=== PATIENT | female | born 1985 | race Hispanic/Latino ===

== ENCOUNTER 2019-06-18 06:28 | Day surgery (SDC) | payer OTHER ==
[2019-06-12 12:42] LABS: Absolute Lymphocytes (CBC) 2.5 K/uL (0.7-4.9); Basophils % 0.6 % (0-1.3); Hematocrit 27.3 % (36.0-45.0); Lymphocytes % 43.7 % (15.3-44.8); MPV 9.2 fL (7.6-11.3)
[2019-06-12 13:09] LABS: Urine Appearance CLEAR; Urine Bilirubin NEGATIVE (NEG); Urine Blood 1+ (NEG); Urine Color YELLOW; Urine Glucose NEGATIVE (NEG); Urine Protein NEGATIVE (NEG); Urine Urobilinogen 0.2 mg/dL (0.2-1.0)
[2019-06-12 13:11] LABS: Urine Microscopic Reflex ORDER UMIC
[2019-06-12 13:52] LABS: Urine Bacteria 20-50 /HPF (<20); Urine Culture Reflex Order REFLEXED; Urine Mucus 2+ /HPF (NONE SEEN)
[2019-06-18] MEDS ORDERED: Ringers Lactate 1,000 ML IV ONE ×2 (06:45→10:24)
[2019-06-18] MEDS ORDERED: SCOPOLAMINE HYDROBROMIDE PATCH TD ONE (06:45)
[2019-06-18] MEDS ORDERED: CEFAZOLIN/SWI 2gm 2 GM/20 ML SYR ONE (06:45)
[2019-06-18 06:48] LABS: Specific Gravity <= 1.005 (1.005-1.030)
[2019-06-18] MEDS ORDERED: PROPOFOL 200 MG/20 ML VIAL IV ONE (07:14)
[2019-06-18] MEDS ORDERED: FENTANYL CITR 250 MCG/5 ML ONE (07:15)
[2019-06-18] MEDS ORDERED: ROCURONIUM 50 MG/5 ML VIAL IV ONE ×2 (07:15→08:51)
[2019-06-18] MEDS ORDERED: ONDANSETRON 4 MG/2 ML VIAL ONE (07:15)
[2019-06-18] MEDS ORDERED: MIDAZOLAM HCL 2 MG/2 ML INJ ONE (07:15)
[2019-06-18 07:20] VITALS: O2SAT 100
[2019-06-18] MEDS ORDERED: BUPIVACAINE 0.25% PF 10 ML VIAL ONE (08:08)
[2019-06-18] MEDS ORDERED: LIDOCAINE 1% 20 ML MDV ONE (08:08)
[2019-06-18] MEDS ORDERED: dexAMETHasone 4 MG/ML VIAL ONE (08:20)
[2019-06-18] MEDS ORDERED: EPHEDRINE SULF 50 MG/ML VIAL ONE (08:23)
[2019-06-18] MEDS ORDERED: KETOROLAC 30 MG/ML INJ ONE (10:11)
[2019-06-18] MEDS: Ringers Lactate 1,000 ML IV ONE ×2 (10:22→10:34)
[2019-06-18] MEDS ORDERED: ATROPINE SULF 1 MG/10 ML SYR IV ONE (10:30)
[2019-06-18 11:31] VITALS: TEMP 98.8
[2019-06-18] MEDS ORDERED: HYDROCODONE/APAP 5/325 MG TAB ONE (11:38)
[2019-06-18 12:35] VITALS: BP 108/65
--- NOTE | 2019-06-18 22:29 | OP ---
Date of Procedure: 06/18/2019 Surgeon: Dilcia Ron MD Preoperative Diagnoses: Menorrhagia, fibroids, iron-deficiency anemia. Postoperative Diagnosis: Menorrhagia, fibroids, iron-deficiency anemia, and endometriosis. Procedures Performed: Total laparoscopic hysterectomy, bilateral salpingectomy, endometriosis excisi on, and right ovarian pexy. Indication: The patient is a 33-year-old female, 2, para 2, done with childbearing. She has had history of cervical incompetence during and status post cerclage. No other gynecologi aletha procedures. She was referred for severe iron deficiency anemia and failed medical management by Dr. Ventura. Oral contraceptives, Depo did fail to take care of her bleeding, worsening over the p ast 4 years since the last childbirth. Uterus size about 10 to 12 weeks. Discussed about the option s of myomectomy, ablation of fibroid using uterine artery embolization. After discussing the benefit s, risks, and alternatives of the procedures and the risks of recurrent anemia, the patient wanted to proceed with a hysterectomy. She was done with childbearing and so, there were no further concerns. The patient's was interviewed as well and they were both in agreement about their decision, s o she was consented for a total laparoscopic hysterectomy, bilateral salpingectomy. Procedure In Detail: After she was brought back to the OR, 2 g of Ancef were given. The patient was placed on operating table in a supine fashion. General anesthesia was given, placed in dorsal litho halle position, arms were tucked by the side, SCDs were started after antibiotic was given. Pelvic exam was performed, uterus anteflexed, and large posterior fibroid noted. No adnexal masses were noted. No nodularity was noted. Abdomen, vulva, vagina, and perineum were prepped and draped in a sterile fashion. Alexander was placed to drain the bladder. Large VCare fixed into place. This area was draped. A 1 cm infraumbilical incision made with the scalpel using the open laparoscopy technique. Fascia wa s incised, tagged with 0 Vicryl sutures, peritoneum entered, S-retractors were placed, and then, Adelso on introduced and abdomen insufflated. The gallbladder appeared to be completely unremarkable. Some adhesions of the ascending colon in the right lower quadrant above the level of the pelvic brim. No other problems were seen. Endometriosis was noted in the left lateral wall, the posterior aspect of the uterus, and the uterosacral ligament on the left. Ovaries were normal. Tubes were normal. A large posterior fibroid was seen, just had to make a plan to go posterior to this since it is almos t lower uterine and cervical in origin. A 5 mm left lower quadrant, 10 mm suprapubic ports were placed. The procedure was started. The left tube was taken down from the fimbriated end all the way to the medial aspect intact. Utero-ovarian ligament and round ligament were all taken down. Broad ligament was skeletonized. The anterior diomedes toneum of the broad ligament was opened up such that the bladder flap was raised posteriorly. Dissec tion was performed to separate the ureter from the uterine artery, making sure that the level of the endometriosis was excised and stayed on the specimen side. There was some endometriosis in the infer omedial aspect of the ureter and the mid pelvis that had to be left alone because this could not be i ncluded with the serosa and this was taken later. Then once the vessels were skeletonized on opposit e side, similar dissection was performed to take down the utero-ovarian ligament, round ligament, bro ad ligament, and bladder flap was connected and posteriorly, incision was made to open the peritoneum above the uterosacral ligament. The vesicovaginal space was entered anteriorly with the help of the monopolar hook blade and then bladder pushed down inferiorly at least 2 cm. Then, the ve ssels were taken down on both sides and cardinal ligaments on both sides. The ureter was seen immedi ately inferior and lateral to the pedicle. No evidence of any trauma. The pedicle was fro m the cuff and then, the cuff was incised with a monopolar hook blade and circumferential colpotomy w as performed and the specimen was pulled out through the vagina. Thorough irrigation and suction wer e performed. The right tube was removed independently using the LigaSure and then pulled out and danielle ded out as a separate specimen. Then, endometriosis was picked up with a Aiyana grasper, excised by using the monopolar hook blade and scissors after it from the ureter medially. There was no endometriosis left after removing the uterus. It appeared that the right ovary was too redundant that it could possibly scar on top of the vaginal cuff and cause problems or dyspareunia, so due to this concern, right ovarian pexy was done with a 3-0 Monocryl in a sapduq-xa-kvqgl fashion to the bas e of the right round ligament. Once this was done, the vaginal cuff was closed with the help of a 0 barbed suture in a continuous ru nning fashion starting on the right side, running the first layer through the vaginal epithelium ____ anteriorly and posteriorly. Then, the fascia was closed on top of it for a type 2 layer closu re and 2 more sutures were taken so that it does not unwind. Once this was done, there was excellent hemostasis. No evidence of any electrical, mechanical, or thermal injury to the ureters on both christina es. The entire vagina was well closed. After thorough irrigation, suction were performed. Then, all the trocars were removed under direct v ision. Before the trocars were placed, Marcaine 0.25% was injected at the trocar sites on the fascia and then at the end as well. The fascia at the umbilicus was closed with a 0 Vicryl in a figure-of- eight fashion and simple 0 Vicryl stitch at the suprapubic site. All incisions at the skin closed wi th interrupted 4-0 Vicryl. She was recovered from anesthesia and taken to PACU in stable condition. Vaginal packing and Alexander were all removed. Instrument, needle, and sponge counts were correct. Brittanie malin will follow up with me in 1 week. IRENE/EMIL Voice ID: [id number] Report ID: [id number]
== END 2019-06-18 13:28 | disposition home or self-care (01) ==
LOC: OR 06:28
PROVIDERS: ATTEND Obstetrics & Gynecology
PROC: 0UT74ZZ Resection of Bilateral Fallopian Tubes, Percutaneous Endoscopic Approach (ICD-10-PCS; 2019-06-18)
PROC: 0DBW4ZZ Excision of Peritoneum, Percutaneous Endoscopic Approach (ICD-10-PCS; 2019-06-18)
PROC: 0US04ZZ Reposition Right Ovary, Percutaneous Endoscopic Approach (ICD-10-PCS; 2019-06-18)
PROC: 0UT94ZZ Resection of Uterus, Percutaneous Endoscopic Approach (ICD-10-PCS; principal; 2019-06-18 07:30)
DX: N92.0 Excessive and frequent menstruation with regular cycle (principal); D25.2 Subserosal leiomyoma of uterus; N80.3 Endometriosis of pelvic peritoneum; D50.9 Iron deficiency anemia, unspecified; Z80.0 Family history of malignant neoplasm of digestive organs
CPT/HCPCS: 87088; 85025; 87086; 36415 ×2; 86900; 86850; 84703; 81025; 86901; 88305; 88307; 58571; 58662; 58679; J2704; J2250; J3010; J0690; J2405; 81003; 81015

== ENCOUNTER 2024-11-05 06:54 | Day surgery (SDC) | payer BC, OTHER ==
[2024-11-05] MEDS: Ringers Lactate 1,000 ML IV ONE (07:20)
[2024-11-05 07:35] VITALS: O2SAT 100
[2024-11-05] MEDS ORDERED: MIDAZOLAM HCL 2 MG/2 ML INJ ONE (07:38)
[2024-11-05] MEDS ORDERED: FENTANYL CITR 100 MCG/2 ML ONE (07:38)
[2024-11-05] MEDS ORDERED: propofoL 200 MG/20 ML VIAL IV ONE (07:38)
[2024-11-05] MEDS ORDERED: LIDOCAINE 2% MPF 5 ML VIAL ONE (07:38)
[2024-11-05] MEDS ORDERED: ONDANSETRON 4 MG/2 ML VIAL ONE (07:38)
[2024-11-05] MEDS ORDERED: dexAMETHasone 10 MG/ML VIAL ONE (12:29)
[2024-11-05] MEDS: LIDOCAINE HCL/EPINEPHRINE 20 ML MDV ONE (12:47)
[2024-11-05] MEDS: SILVER SULFADIAZINE 1% 25 GM TOP ONE (12:47)
[2024-11-05] MEDS ORDERED: IBUPROFEN 200 MG TAB PO PRN (13:17)
[2024-11-05] MEDS ORDERED: PROMETHAZINE INJ 25 MG/ML AMP IV PRN (13:17)
--- NOTE | 2024-11-05 13:19 | P.BOP ---
Preoperative diagnosis: persistent HPV/ vulvar warts Postoperative diagnosis: same Primary procedure: Vulvar laser destruction of condylomata > 15 Estimated blood loss: 5 Specimen: none Findings: mons and left inner thigh/ groin fold wrts >15 Anesthesia: General Complications: None Transferred to: Recovery Room Condition: Good
[2024-11-05] MEDS ORDERED: HYDROCODONE/APAP 5/325 MG TAB ONE (14:03)
[2024-11-05] MEDS: HYDROCODONE/APAP 5/325 MG TAB PO PRN (14:10)
[2024-11-05 15:31] VITALS: BP 104/88; TEMP 97.6
--- NOTE | 2024-11-06 02:38 | OP ---
Date of Procedure: 11/05/2024 Surgeon: Dilcia Ron MD Door Captain: No assistants. Preoperative Diagnosis: Persistent vulvar warts, positive human papillomavirus. Postoperative Diagnosis: Persistent vulvar warts, positive human papillomavirus. Procedures Performed: Vulvar laser destruction of condylomata, greater than 15. Estimated Blood Loss: Less than 5. Specimens: No specimens. Complications: No complications. Drains: No drains. Anesthesia: General endotracheal. Findings: Multiple warts isolated and on the right as well, mostly on the left side and s preading over to the left inner thigh and groin fold. Condition: The patient's condition is good. Indications: The patient is a young 39-year-old, known to the practice with who also has had history of resistant warts that had to be lasered after failure of topical therapy. She had podophy llin and imiquimod therapy last year with us and had failed to resolve her condylomata and therefore, she was consented for laser ablation. Description Of Procedure: After informed consent was re-verified in the preoperative area with the p atmaricarmen and her , questions answered to their satisfaction, she was taken back to the OR. She was placed in a supine fashion on the operating table and after MAC was given, she was placed in a do rsal lithotomy position using Spencer stirrups. Vulva, vagina, inner thighs, and perineum were prepped and draped in sterile fashion. Once the patient was identified, SCDs were started. Time-out was do ne. The warts were all identified by close clear examination and once there were mapped out, the CO2 laser was then taken using the handpiece adjusting the small size. A power of 6 camejo was used and all the lesions were ablated. Care was taken to make sure that the peripheral portion of the skin ar ound the lesion was appropriately cauterized to at least 2 mm depth penetrating the entire thickness of the epithelium. Once all the warts were completely lasered, wet Ray-Mumtaz was used to clean the ting rt and examined. Further ablation was done on 2 of the lesions so that the margins were surely well cauterized. Once all the procedure was complete, the laser was kept on standby. All the precautions were taken evacuation as well as the laser light. Then, Silvadene ointment was placed af ter cleaning with saline solution on the lesions and 4 x 4 soft gauze was placed on the wound. Mesh panties were put on and the patient was recovered from anesthesia and taken to PACU in stable conditi on. Her was debriefed about the procedure and she was recovered for discharge and followup i n 3 weeks. Silvadene application twice a day instructed and diomedes care. IRENE/EMIL Voice ID: [id number] Report ID: [id number]
[2024-11-06] MEDS ORDERED: DOCOSAHEXANOIC AC/EPA 1000 MG PO SCH (09:00)
== END 2024-11-05 15:00 | disposition home or self-care (01) ==
LOC: OR 06:54
PROVIDERS: ATTEND Obstetrics & Gynecology
PROC: 0H59XZD Destruction of Perineum Skin, Multiple, External Approach (ICD-10-PCS; 2024-11-05)
PROC: 0H5 Skin and Breast, Destruction (ICD-10-PCS; 2024-11-05)
PROC: 0H5AXZD Destruction of Inguinal Skin, Multiple, External Approach (ICD-10-PCS; principal; 2024-11-05 08:00)
DX: A63.0 Anogenital (venereal) warts (principal); B07.8 Other viral warts
CPT/HCPCS: 56515; 17111; J2704; J2003; J2250; J3010; J1100; J2405; J7120